=== PATIENT | male | born 1995 | race African-American/Black ===

== ENCOUNTER 2021-11-27 15:50 | Emergency (ER) | payer OTHER ==
[2021-11-27] MEDS ORDERED: ONDANSETRON 4 MG/2 ML VIAL ONE (16:21)
[2021-11-27] MEDS ORDERED: MORPHINE 4 MG/ML SYR ONE (16:21)
[2021-11-27] MEDS ORDERED: NA CHLORIDE 0.9% 1,000 ML ONE (16:22)
[2021-11-27] MEDS ORDERED: PANTOPRAZOLE 40 MG INJ ONE (16:22)
[2021-11-27 16:39] LABS: Absolute Lymphocytes (CBC) 0.7 K/uL (0.7-4.9); Lymphocytes % 10.6 % (15.3-44.8); MCV 84.8 fL (80-100); MPV 9.1 fL (7.6-11.3); RBC Red Blood Cell Count 5.08 M/uL (4.33-5.43)
[2021-11-27 16:43] LABS: Protime INR 1.12
[2021-11-27 16:59] LABS: Bilirubin Total 0.5 mg/dL (0.2-1.0); Potassium 4.3 mmol/L (3.5-5.1); Protein, Total 7.9 g/dL (6.4-8.2)
--- NOTE | 2021-11-27 17:24 | RAD REPORT ---
EXAM DESCRIPTION: CT - Abdomen Pelvis W Contrast - 11/27/2021 5:13 pm CLINICAL HISTORY: Abdominal pain COMPARISON: none. TECHNIQUE: Computed axial tomography of the abdomen pelvis was obtained. 100 cc Isovue-300 was admin istered intravenously. Oral contrast was not requested which limits evaluation of bowel and appendix All CT scans are performed using dose optimization technique as appropriate and may include automated exposure control or mA/KV adjustment according to patient size. FINDINGS: The liver, spleen, pancreas, adrenal and kidneys appear unremarkable. There is no evidence of diverticulitis. Several mildly dilated fluid-filled loops of small bowel within the lower abdomen and pelvis. Most of the jejunum and distal ileum are normal caliber. Small to moderate amount of ascites within the pelvis IMPRESSION: Several mildly dilated fluid-filled loops of small bowel. Of this may represent an enter itis or ileus. Another consideration is that this represents a closed loop obstruction. Small to moderate amount of ascites within the pelvis
--- NOTE | 2021-11-27 17:58 | ER ---
Nurse's Notes [facility] Name: Jovani Archuleta Jr Age: 26 yrs Sex: Male : 1995 Arrival Date: 11/27/2021 Time: 15:53 Bed 2 Private MD: Diagnosis: Small Bowel Obstruction Presentation: 11/27 15:58 Chief complaint: PER CORRECTIONAL MANAGED CARE: RUQ PAIN AND VOMIT x1 LAST PM 1930. bp Coronavirus screen: At this time, the client does not indicate any symptoms associated with coronavirus-19. Ebola Screen: No symptoms or risks identified at this time. Initial Sepsis Screen: Does the patient meet any 2 criteria? No. Patient's initial sepsis screen is negative. Does the patient have a suspected source of infection? No. Patient's initial sepsis screen is negative. Risk Assessment: Do you want to hurt yourself or someone else? Patient reports no desire to harm self or others. Onset of symptoms was November 26, 2021 at 19:30. 15:58 Method Of Arrival: Law Enforcement: [place] [employer] bp 15:58 Acuity: PREM 3 bp Triage Assessment: 16:00 General: Appears in no apparent distress. uncomfortable, Behavior is calm, cooperative, bp appropriate for age. Pain: Complains of pain in abdomen. EENT: No deficits noted. Neuro: No deficits noted. Cardiovascular: No deficits noted. Respiratory: No deficits noted. GI: Reports upper abdominal pain, nausea. : No signs and/or symptoms were reported regarding the genitourinary system. Derm: No deficits noted. Musculoskeletal: No deficits noted. Historical: - Allergies: 16:00 No Known Allergies; bp - Home Meds: 16:00 None [Active]; bp - PMHx: 16:00 None; bp - Immunization history:: Adult Immunizations up to date. - Social history:: Smoking status: unknown. Screenin:02 Abuse screen: Denies threats or abuse. Denies injuries from another. Nutritional bp screening: No deficits noted. Tuberculosis screening: No symptoms or risk factors identified. Fall Risk None identified. Assessment: 16:02 General: SEE TRIAGE NOTE. bp 17:48 Reassessment: Patient appears in no apparent distress at this time. Patient and/or vg1 family updated on plan of care and expected duration. Pain level reassessed. Patient is alert, oriented x 3, equal unlabored respirations, skin warm/dry/pink. rated ABD pain 6/10 and stated 'feeling better than earlier". 18:49 Reassessment: [facility] TRANSFER INITIATED. bp 20:42 Reassessment: Spoke with [facility], Will call back with ETA for transportation. vc1 20:43 Reassessment: No changes from previously documented assessment. Patient and/or family vc1 updated on plan of care and expected duration. Pain level reassessed. Patient is alert, oriented x 3, equal unlabored respirations, skin warm/dry/pink. GI: Patient currently denies vomiting. 20:55 Reassessment: Report given to FORTUNATO Jensen. vc1 20:56 Reassessment: ETA of transportation 2 hrs. vc1 22:16 Reassessment: Patient and/or family updated on plan of care and expected duration. Pain vc1 level reassessed. Patient is alert, oriented x 3, equal unlabored respirations, skin warm/dry/pink. Patient denies pain at this time. Vital Signs: 15:58 BP 137 / 81; Pulse 58; Resp 18; Temp 98; Pulse Ox 100% ; Weight 63.05 kg; bp 17:45 BP 128 / 76; Pulse 50; Resp 14; Pulse Ox 100% on R/A; vg1 18:48 BP 121 / 74; Pulse 48; Resp 16; Pulse Ox 100% ; bp 20:43 BP 123 / 76; Pulse 50; Pulse Ox 100% on R/A; vc1 21:30 BP 107 / 85; Pulse 53; Resp 15; Pulse Ox 100% on R/A; vc1 ED Course: 15:53 Patient arrived in ED. iw 15:53 Orion Pineda, FORTUNATO is Primary Nurse. bp 15:54 Geovanny Peguero PA is PHCP. cp 15:54 Geovanny Osorio MD is Attending Physician. cp 16:00 Triage completed. bp 16:01 Arm band placed on. bp 16:02 Patient has correct armband on for positive identification. Bed in low position. Call bp light in reach. Side rails up X2. 16:28 Initial lab(s) drawn, by me, sent to lab. Inserted saline lock: 20 gauge in right vg1 antecubital area, using aseptic technique. Blood collected. 17:15 CT Abd/Pelvis - IV Contrast Only In Process Unspecified. EDMS 20:34 administrative approval given by Sammi Emerson/ patient has been accepted to [facility] 746 bed 2/ Dr. Latham accepted the patient in transfer. 20:55 [facility] transport ETA 2 hours. mw2 Administered Medications: 16:30 Drug: NS 0.9% 1000 ml Route: IV; Rate: 1 bolus; Site: right antecubital; bp 16:30 Drug: Zofran (Ondansetron) 4 mg Route: IVP; Site: right antecubital; bp 17:48 Follow up: Response: No adverse reaction vg1 16:30 Drug: ProTONIX (pantoprazole) 40 mg Route: IVP; Site: right antecubital; bp 17:48 Follow up: Response: Marked relief of symptoms vg1 16:30 Drug: morphine 4 mg Route: IVP; Infused Over: 4 mins; Site: right antecubital; bp 17:48 Follow up: Response: Pain is decreased vg1 21:12 Drug: NS 0.9% 1000 ml Route: IV; Rate: 1 bolus; Site: right antecubital; vc1 22:19 Follow up: IV Status: Completed infusion; IV Intake: 1000ml vc1 21:12 Drug: NS 0.9% 1000 ml Route: IV; Rate: 125 ml/hr; Site: right antecubital; vc1 22:19 Follow up: IV Status: Infusion continued upon transfer vc1 Medication: 16:02 VIS not applicable for this client. bp Intake: 22:19 IV: 1000ml; Total: 1000ml. vc1 Outcome: 17:58 ER care complete, transfer ordered by . cp 22:33 Patient left the ED. vc1 Signatures: Dispatcher [employer] EDMS Zo Garcia RN RN iw Page, Corey, PA PA cp Peltier, Brian RN RN bp Eber Jacobs mw2 Agnes Davis RN RN vg1 Griselda Garcia RN RN vc1
--- NOTE | 2021-11-27 17:59 | EDPHYS ---
Physician Documentation [facility] Name: Jovani Archuleta Jr Age: 26 yrs Sex: Male : 1995 Arrival Date: 11/27/2021 Time: 15:53 Bed 2 Private MD: ED Physician Geovanny Osorio HPI: 11/27 16:15 This 26 yrs old Black Male presents to ER via Law Enforcement with complaints of cp Abdominal Pain. 16:15 The patient presents with abdominal pain mid right abdomen. Onset: The symptoms/episode cp began/occurred yesterday. Associated signs and symptoms: Pertinent positives: nausea and vomiting, anorexia, constipation, Pertinent negatives: diarrhea, fever, testicular pain, vomiting blood. The symptoms are described as constant. Historical: - Allergies: 16:00 No Known Allergies; bp - Home Meds: 16:00 None [Active]; bp - PMHx: 16:00 None; bp - Immunization history:: Adult Immunizations up to date. - Social history:: Smoking status: unknown. ROS: 16:20 Constitutional: Negative for body aches, chills, fever. cp 16:20 Eyes: Negative for injury, pain, redness, and discharge. cp 16:20 ENT: Negative for drainage from ear(s), ear pain, sore throat, difficulty swallowing, difficulty handling secretions. 16:20 Cardiovascular: Negative for chest pain, palpitations. 16:20 Respiratory: Negative for cough, shortness of breath, wheezing. 16:20 Abdomen/GI: Positive for abdominal pain, nausea and vomiting, Negative for diarrhea, constipation, black/tarry stool, rectal bleeding. 16:20 : Negative for urinary symptoms, testicular pain 16:20 Neuro: Negative for altered mental status, headache, syncope, weakness. 16:20 All other systems are negative. Exam: 16:25 Constitutional: The patient appears in no acute distress, alert, awake, non-toxic, well cp developed, well nourished, uncomfortable. 16:25 Head/Face: Normocephalic, atraumatic. cp 16:25 Eyes: Periorbital structures: appear normal, Conjunctiva: normal, no exudate, no injection, Sclera: no appreciated abnormality, Lids and lashes: appear normal, bilaterally. 16:25 ENT: External ear(s): are unremarkable, Nose: is normal, Mouth: Lips: moist, Oral mucosa: moist, Posterior pharynx: Airway: no evidence of obstruction, patent. 16:25 Neck: ROM/movement: is normal, is supple, without pain, no range of motions limitations. 16:25 Chest/axilla: Inspection: normal, Palpation: is normal, no crepitus, no tenderness. 16:25 Cardiovascular: Rate: bradycardic, Rhythm: regular, Edema: is not appreciated, JVD: is not appreciated. 16:25 Respiratory: the patient does not display signs of respiratory distress, Respirations: normal, no use of accessory muscles, no retractions, labored breathing, is not present, Breath sounds: are clear throughout, no decreased breath sounds, no stridor, no wheezing. 16:25 Abdomen/GI: Inspection: distension, is not seen, Bowel sounds: active, all quadrants, Palpation: soft, in all quadrants, moderate abdominal tenderness, in the right upper quadrant and right lower quadrant, rebound tenderness, is not appreciated, involuntary guarding, is not appreciated. 16:25 Back: pain, is absent, ROM is normal. 16:25 Neuro: Orientation: to person, place \T\ time. Mentation: is normal. Vital Signs: 15:58 BP 137 / 81; Pulse 58; Resp 18; Temp 98; Pulse Ox 100% ; Weight 63.05 kg; bp 17:45 BP 128 / 76; Pulse 50; Resp 14; Pulse Ox 100% on R/A; vg1 18:48 BP 121 / 74; Pulse 48; Resp 16; Pulse Ox 100% ; bp 20:43 BP 123 / 76; Pulse 50; Pulse Ox 100% on R/A; vc1 21:30 BP 107 / 85; Pulse 53; Resp 15; Pulse Ox 100% on R/A; vc1 MDM: 15:57 Patient medically screened. cp 17:00 Differential diagnosis: bowel obstruction, cholecystitis, Cholelithiasis, non-specific cp abd pain, pancreatitis, Pyelonephritis, Ureterolithiasis, urinary tract infection. 17:58 Data reviewed: vital signs, nurses notes, lab test result(s), radiologic studies, CT cp scan. 17:58 Counseling: I had a detailed discussion with the patient and/or guardian regarding: the cp historical points, exam findings, and any diagnostic results supporting the discharge/admit diagnosis, lab results, radiology results, the need to transfer to another facility, to [facility] due to requirement by managed care. 11/27 16:01 Order name: CBC with Diff; Complete Time: 17:52 cp 11/27 17:53 Interpretation: Normal except: ROSANA% 83.0; LYM% 10.6. cp 11/27 16:01 Order name: CMP; Complete Time: 17:52 cp 11/27 16:01 Order name: Lipase; Complete Time: 17:52 cp 11/27 16:01 Order name: PT-INR; Complete Time: 17:52 cp 11/27 16:01 Order name: Ptt, Activated; Complete Time: 17:52 cp 11/27 16:01 Order name: CT Abd/Pelvis - IV Contrast Only; Complete Time: 17:52 cp 11/27 17:57 Interpretation: Report reviewed. cp 11/27 18:19 Order name: SARS RAPID; Complete Time: 20:02 bp 11/27 16:01 Order name: IV Saline Lock; Complete Time: 16:28 cp 11/27 16:01 Order name: Labs collected and sent; Complete Time: 16:28 cp Administered Medications: 16:30 Drug: NS 0.9% 1000 ml Route: IV; Rate: 1 bolus; Site: right antecubital; bp 16:30 Drug: Zofran (Ondansetron) 4 mg Route: IVP; Site: right antecubital; bp 17:48 Follow up: Response: No adverse reaction vg1 16:30 Drug: ProTONIX (pantoprazole) 40 mg Route: IVP; Site: right antecubital; bp 17:48 Follow up: Response: Marked relief of symptoms vg1 16:30 Drug: morphine 4 mg Route: IVP; Infused Over: 4 mins; Site: right antecubital; bp 17:48 Follow up: Response: Pain is decreased vg1 21:12 Drug: NS 0.9% 1000 ml Route: IV; Rate: 1 bolus; Site: right antecubital; vc1 22:19 Follow up: IV Status: Completed infusion; IV Intake: 1000ml vc1 21:12 Drug: NS 0.9% 1000 ml Route: IV; Rate: 125 ml/hr; Site: right antecubital; vc1 22:19 Follow up: IV Status: Infusion continued upon transfer vc1 Disposition Summary: 11/27/21 17:58 Transfer Ordered Transfer Location: [facility] cp Reason: Higher level of care cp Condition: Stable cp Problem: new cp Symptoms: have improved cp Accepting Physician: Doctor(11/27/21 22:33) vc1 Diagnosis - Small Bowel Obstruction cp Forms: - Medication Reconciliation Form cp - SBAR form cp Signatures: Dispatcher [employer] EDGeovanny Kearney PA PA cp Peltier, Brian, RN RN Griselda Rosario RN RN vc1 Agnes Davis RN vg1 Corrections: (The following items were deleted from the chart) :33 17:58 Doctor cp vc1
[2021-11-27 18:52] LABS: SARS-CoV-2 Antigen Rapid Res Negative (Negative)
[2021-11-27] MEDS ORDERED: NA CHLORIDE 0.9% 2,000 ML ONE (20:48)
== END 2021-11-27 22:33 | disposition short-term general hospital (02) ==
LOC: ER 15:50
DX: K56.609 Unspecified intestinal obstruction, unspecified as to partial versus complete obstruction (principal); Z20.822 Contact with and (suspected) exposure to COVID-19
CPT/HCPCS: 85025; 36415; 85610; 85730; 83690; 80053; 74177; 87811; Q9967; J2405; 96361; 96374; 96375; 99284; C9113; J7030